=== PATIENT | male | born 1945 | race Caucasian/White ===

== ENCOUNTER 2020-07-24 05:08 | Emergency (ER) | payer MEDICARE | END 2020-07-24 08:08 | LOC: NAV ERS 05:08 | DX: S00.93XA Contusion of unspecified part of head, initial encounter (principal); I11.0 Hypertensive heart disease with heart failure; I50.9 Heart failure, unspecified; E11.9 Type 2 diabetes mellitus without complications; E78.5 Hyperlipidemia, unspecified; Z79.899 Other long term (current) drug therapy; Z79.4 Long term (current) use of insulin; W06.XXXA Fall from bed, initial encounter | CPT/HCPCS: 70450; 72125 ==

== ENCOUNTER 2023-01-09 17:13 | Emergency (ER) | payer MEDICAID, MEDICARE, OTHER ==
[2023-01-09] MEDS ORDERED: Bupivacaine 0.5% 10 ML VIAL ONE (17:28)
[2023-01-09] MEDS ORDERED: Bacitracin 1 PK ONE (17:28)
[2023-01-09] MEDS ORDERED: HYDROcodone/Acetaminophen 5/325 mg Tablet ONE (19:04)
== END 2023-01-09 19:08 | disposition home or self-care (01) ==
LOC: NAV ERS 17:13
DX: L03.113 Cellulitis of right upper limb (principal); M25.531 Pain in right wrist; I11.0 Hypertensive heart disease with heart failure; I50.9 Heart failure, unspecified; I48.91 Unspecified atrial fibrillation; E11.9 Type 2 diabetes mellitus without complications; M10.9 Gout, unspecified; E78.00 Pure hypercholesterolemia, unspecified; Z79.01 Long term (current) use of anticoagulants; Z79.4 Long term (current) use of insulin; Z79.84 Long term (current) use of oral hypoglycemic drugs; Z79.899 Other long term (current) drug therapy
CPT/HCPCS: J3490

== ENCOUNTER 2025-01-29 17:23 | Emergency (ER) | payer MEDICARE, OTHER, SELFPAY | END 2025-01-29 19:19 | disposition home or self-care (01) | LOC: NAV ERS 17:23 | DX: S70.01XA Contusion of right hip, initial encounter (principal); S00.93XA Contusion of unspecified part of head, initial encounter; I48.91 Unspecified atrial fibrillation; E11.9 Type 2 diabetes mellitus without complications; E78.00 Pure hypercholesterolemia, unspecified; I11.0 Hypertensive heart disease with heart failure; I50.9 Heart failure, unspecified; Z79.899 Other long term (current) drug therapy; Z79.84 Long term (current) use of oral hypoglycemic drugs; W19.XXXA Unspecified fall, initial encounter; Y92.89 Other specified places as the place of occurrence of the external cause | CPT/HCPCS: 70450 ==